=== PATIENT | male | born 1995 | race Asian ===

== ENCOUNTER 2017-01-29 14:49 | Emergency (ER) | payer SELFPAY ==
[2017-01-29 15:21] VITALS: BP 123/71
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
[2017-01-29] MEDS ORDERED: TYLENOL PO ONE (16:05)
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
== END 2017-01-29 18:15 | disposition home or self-care (01) ==
LOC: ED 14:49
DX: S00.83XA Contusion of other part of head, initial encounter (principal); Y09 Assault by unspecified means; Y93.89 Activity, other specified; Y99.9 Unspecified external cause status; Y92.89 Other specified places as the place of occurrence of the external cause
CPT/HCPCS: 70450; 72125; 99283

== ENCOUNTER 2017-06-13 19:46 | Emergency (ER) | payer SELFPAY ==
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
[2017-06-14] MEDS ORDERED: NORCO 5/325 PO ONE (01:04)
[2017-06-14] MEDS ORDERED: TORADOL IM ONE (01:04)
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
[2017-06-14 02:08] VITALS: BP 136/64
== END 2017-06-14 01:25 | disposition home or self-care (01) ==
LOC: ED 19:46
DX: S22.42XA Multiple fractures of ribs, left side, initial encounter for closed fracture (principal); X58.XXXA Exposure to other specified factors, initial encounter; Y93.89 Activity, other specified; Y92.89 Other specified places as the place of occurrence of the external cause; Y99.8 Other external cause status
CPT/HCPCS: 71101; 96372; 99283; J1885

== ENCOUNTER 2022-04-28 23:58 | Emergency (ER) | payer SELFPAY ==
[2022-04-29 01:13] VITALS: BP 138/78
== END 2022-04-29 12:00 | disposition left against medical advice (07) ==
LOC: ED 23:58
DX: R10.9 Unspecified abdominal pain (principal); Z53.21 Procedure and treatment not carried out due to patient leaving prior to being seen by health care provider